=== PATIENT | female | born 1970 | race American Indian/Alaskan Native ===

== ENCOUNTER 2017-08-27 02:17 | Emergency (ER) | payer MEDICAID ==
[2017-08-27 03:40] VITALS: TEMP 98
--- NOTE | 2017-08-27 04:15 | C.PDOC ---
History Of Present Illness 47 year old female presents to the ED c/o moderate headache. Patient reports she had a few drinks last night and while walking home she fell and hit her head on the sidewalk. Patient was unsure of LOC, but friends presents deny. Patient denies neck pain, facial pain, visual changesm numbness, weakness. - HPI Time Seen by Provider: 08/27/17 02:37 Chief Complaint (Nursing): Trauma History Per: Patient History/Exam Limitations: no limitations Onset/Duration Of Symptoms: Days Injury Occurred (Timing): Days Ago: (1) Location Of Injury: Left: Head Recent travel outside of the [facility]: No Additional History Per: Patient - Fall Fall:Prior To Injury: Tripped Past Medical History Reviewed: Historical Data, Nursing Documentation, Vital Signs Vital Signs: Last Vital Signs Temp 98 F 08/27/17 03:39 Pulse 62 08/27/17 03:39 Resp 18 08/27/17 03:39 BP 116/71 08/27/17 03:39 Pulse Ox 100 08/27/17 05:10 - Medical History PMH: HTN Surgical History: No Surg Hx Family History: States: Unknown Family Hx - Social History Hx Tobacco Use: No Hx Alcohol Use: Yes Hx Substance Use: No - Immunization History Hx Tetanus Toxoid Vaccination: No Hx Influenza Vaccination: No Hx Pneumococcal Vaccination: No Review Of Systems Constitutional: Negative for: Fever, Chills Eyes: Negative for: Vision Change Cardiovascular: Negative for: Chest Pain, Palpitations Respiratory: Negative for: Cough, Shortness of Breath Gastrointestinal: Negative for: Nausea, Vomiting Neurological: Positive for: Headache. Negative for: Weakness, Numbness, Dizziness Physical Exam - Physical Exam Appears: Non-toxic, No Acute Distress Skin: Normal Color, Warm, Dry Head: Atraumatic, Normacephalic, Other (hematoma to left forehead) Eye(s): bilateral: Normal Inspection, PERRL, EOMI Ear(s): Bilateral: Normal Oral Mucosa: Moist Neck: Normal ROM, No Midline Cervical Tenderness, Supple Chest: Symmetrical Cardiovascular: Rhythm Regular Respiratory: Normal Breath Sounds, No Rales, No Rhonchi, No Wheezing Gastrointestinal/Abdominal: Soft, No Tenderness, No Guarding, No Rebound Extremity: Normal ROM, No Tenderness, No Swelling Neurological/Psych: Oriented x3, Normal Speech, Normal Motor, Normal Sensation Gait: Steady ED Course And Treatment O2 Sat by Pulse Oximetry: 100 (On RA) Pulse Ox Interpretation: Normal - CT Scan/US CT head Other Rad Studies (CT/US): Read By Radiologist, Radiology Report Reviewed CT/US Interpretation: EXAM: CT Head Without Intravenous Contrast. EXAM DATE/ TIME: 08/27/2017 3:02 AM. CLINICAL HISTORY: 47 years old, female; Pain; Headache; Additional info: Headache, fall, head trauma, ETOH. TECHNIQUE: Axial computed tomography images of the head/brain without intravenous contrast. All CT scans at this facility use at least one of these dose optimization techniques: automated. exposure control; mA and/or kV adjustment per patient size (includes targeted exams where dose is. matched to clinical indication); or iterative reconstruction. COMPARISON: No relevant prior studies available. FINDINGS: Brain: Mild atrophy. No intracranial hemorrhage. No mass. No edema. Ventricles: No hydrocephalus. Bones/joints: No acute fracture. Sinuses: No acute sinusitis. Mastoid air cells: No significant mastoid effusion. Orbits: Unremarkable as visualized. Soft tissues: LEFT frontal soft tissue swelling. LEFT frontal scalp lipoma. IMPRESSION: No intracranial hemorrhage. Thank you for allowing us to participate in the care of your patient. Dictated and Authenticated by: Blue Ibrahim MD. 2017 5:09 AM Eastern Time ([place] & [place]) Progress Note: Plan: - head CT. - Tylenol 975 mg PO. Pt remained stable in NAD , VSS and advised follow up with PMD. Return instructions d/w pt and daughter. Pt d/c to the care of her daughter who's at bedside Disposition Counseled Patient/Family Regarding: Diagnosis, Need For Followup - Disposition Referrals: [facility] [Outside] Disposition: HOME/ ROUTINE Disposition Time: 05:16 Condition: STABLE Additional Instructions: Apply ICE to head Tylenol for pain' Return to ER if severe headache, vomiting, lethargy, grogginess, weakness or worse Instructions: Head Injury (ED) Forms: [facility] ([place]) - Clinical Impression Clinical Impression: Head injury, Alcohol abuse - PA / SIGNS CLEANER / Resident Statement MD/DO has reviewed & agrees with the documentation as recorded. - Scribe Statement The provider has reviewed the documentation as recorded by the Scribe Calos Julio All medical record entries made by the Scribe were at my direction and personally dictated by me. I have reviewed the chart and agree that the record accurately reflects my personal performance of the history, physical exam, medical decision making, and the department course for this patient. I have also personally directed, reviewed, and agree with the discharge instructions and disposition.
[2017-08-27 05:26] VITALS: BP 115/67; PULSE 82; RESP 20; O2SAT 98
--- NOTE | 2017-08-27 09:01 | CT ---
Date of service: 08/27/2017 PROCEDURE: CT HEAD WITHOUT CONTRAST. HISTORY: headache, fall, head trauma, etoh COMPARISON: None available. TECHNIQUE: Axial computed tomography images were obtained through the head/brain without intravenous contrast. Radiation dose: Total exam DLP = 963 mGy-cm. This CT exam was performed using one or more of the following dose reduction techniques: Automated exposure control, adjustment of the mA and/or kV according to patient size, and/or use of iterative reconstruction technique. FINDINGS: HEMORRHAGE: No intracranial hemorrhage. BRAIN: No mass effect or edema. Mild atrophy. VENTRICLES: Unremarkable. No hydrocephalus. CALVARIUM: Unremarkable. PARANASAL SINUSES: Unremarkable as visualized. No significant inflammatory changes. MASTOID AIR CELLS: Unremarkable as visualized. No inflammatory changes. OTHER FINDINGS: Left frontal scalp lipoma. Left frontal soft swelling. IMPRESSION: No acute intracranial hemorrhage. If symptoms persists, consider correlation with MRI. These findings were preliminarily reported at 5:09 a.m. on 08/27/[address] Blue Ibrahim from [facility].
== END 2017-08-27 05:44 | disposition home or self-care (01) ==
LOC: C.ER 02:17
DX: S09.90XA Unspecified injury of head, initial encounter (principal); W01.0XXA Fall on same level from slipping, tripping and stumbling without subsequent striking against object, initial encounter; Y92.480 Sidewalk as the place of occurrence of the external cause; F10.10 Alcohol abuse, uncomplicated